=== PATIENT | female | born 1990 | race Caucasian/White ===

== ENCOUNTER → 2023-01-24 | Outpatient (CLI) | payer OTHER, SELFPAY | LOC: EDBD 01-03 14:30 → M WHC 13:49 | PROVIDERS: ATTEND Physician Assistant Medical | DX: N63.32 Unspecified lump in axillary tail of the left breast (principal); Z97.8 Presence of other specified devices | CPT/HCPCS: 76642; 77066; G0279 ==

== ENCOUNTER → 2023-10-11 | Outpatient (CLI) | payer OTHER | LOC: M WHC 12:34 | PROVIDERS: ATTEND Physician Assistant | DX: Z12.31 Encounter for screening mammogram for malignant neoplasm of breast (principal) | CPT/HCPCS: 76642; 77065; G0279 ==